=== PATIENT | male | born 1955 | race Asian ===

== ENCOUNTER → 2017-01-06 | Outpatient (CLI) | payer OTHER ==
--- NOTE | ~2017-01-06 | CT138 ---
[facility] A Service of [facility] RADIOLOGY TEXT RESULTS PATIENT: ZACKARY NICOLE [facility] : 59 UNIT #: [id number] AGE: [address]: PRISCILA London APRN SEX: M ORDER DR: [id number] [facility] [address]. [place], [place] [address] [id number] O MR#: [id number] Acc #: [id number] NAME: ZACKARY NICOLE : 1955 SEX: M STUDY DATE/TIME: 01/06/2017 12:23 UNIT: [facility] ROOM: STUDY DESCRIPTION: CT Lung screening initial Attending Physician: Priscila Multani Aprn Referring Physician: Priscila Multani Aprn Ordering Physician: Priscila Multani Aprn Primary Care Physician: Priscila Multani Aprn MEDICAL IMAGING REPORT This report is preliminary unless electronic signature is present EXAM CT lung cancer screening INDICATION Lung cancer screening. 30 pack year smoking history. PROCEDURE Unenhanced low-dose CT of the chest performed per lung cancer screening protocol. CTDI 2.95 mGy. Total DLP 124 mGy-cm. COMPARISON Chest CT from 06/12/[address] exam was performed with one or more of the following radiation dose reduction techniques: automatic control, adjustment of mA and/or kV according to patient size, and iterative reconstruction. FINDINGS Mild tree-in-bud nodularity, posterolateral right upper lobe is unchanged most in keeping with chronic infectious or inflammatory change. There is no suspicious pulmonary nodule. There are also a few tiny tree-in-bud nodularity nodules in the posterior left upper lobe. No adenopathy. Ascending thoracic aorta measures up to 4.3 cm. This is similar to the prior. No acute findings in the included upper abdomen. No aggressive appearing bone lesion. IMPRESSION 1. No suspicious pulmonary nodule. 2. Tiny tree-in-bud nodules in the right and left upper lobe. It is most in keeping with chronic infectious or inflammatory change and is unchanged from 2013. 3. 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 [facility] A Service of [facility] RADIOLOGY TEXT RESULTS PATIENT: ZACKARY NICOLE LOCATION: [facility] : 59 UNIT #: [id number] AGE: [address]: PRISCILA London, GENERAL LABOR SEX: M ORDER DR: 4. LungRADS category 2 benign findings. Per ACR LungRADS recommendations suggest patient continue with annual low-dose lung cancer screening. Dictated by... Harish Davison M.D. THIS IS AN ELECTRONICALLY VERIFIED REPORT Harish Davison M.D. at 01/07/2017 9:39 AM NICOLLE/hair TD: 01/06/2017 13:37 JOB #: [id number] MEDICAL IMAGING REPORT Page 1 of 1 COPY
== END | disposition home or self-care (01) ==
LOC: CCAT 11:45
DX: Z87.891 Personal history of nicotine dependence (principal); R91.8 Other nonspecific abnormal finding of lung field; I71.2 Thoracic aortic aneurysm, without rupture
CPT/HCPCS: G0297

== ENCOUNTER → 2017-04-27 | Outpatient (CLI) | payer OTHER ==
--- NOTE | ~2017-04-27 | CR58 ---
[facility] A Service of [facility] RADIOLOGY TEXT RESULTS PATIENT: ZACKARY NICOLE LOCATION: [facility] : 59 UNIT #: [id number] AGE: [address]: PRISCILA London APRN SEX: M ORDER DR: [id number] [facility] [address]. [place], [place] [address] [id number] O MR#: [id number] Acc #: [id number] NAME: ZACKARY NICOLE : 1955 SEX: M STUDY DATE/TIME: 04/27/2017 10:15 UNIT: [facility] ROOM: STUDY DESCRIPTION: CR Cervical Spine 2 or 3 Views Attending Physician: Priscila Multani Aprn Referring Physician: Priscila Multani Aprn Ordering Physician: Stephanie London Primary Care Physician: Priscila London MEDICAL IMAGING REPORT This report is preliminary unless electronic signature is present EXAM Cervical spine 2 or 3 views HISTORY Cervicalgia. Pain in neck and mid back left sided for 2 months. No known injury. FINDINGS AP lateral odontoid views cervical spine reviewed. There are 4 films submitted. There is no previous. Cervical vertebral bodies are seen from C1 to T1. Sagittal alignment is normal. Paravertebral soft tissues are normal. Mild loss of intervertebral disc height most apparent at C4-5, C5-6, to a lesser extent C3-4 with some endplate spondylosis at each of these levels. There is also facet arthritis most apparent at C7-T1. There is no acute fracture. There is no bone destruction. If more information is needed the patient is a candidate findings best pursued further with an MRI of the cervical spine. IMPRESSION 1. Plain film evidence of cervical degenerative disc disease and facet arthritis. No acute fracture or malalignment. If more information is needed patient is best assessed further with an MRI of the cervical spine. Dictated by... Bell Mcdermott M.D. THIS IS AN ELECTRONICALLY VERIFIED REPORT Bell Mcdermott M.D. at 04/28/2017 7:25 AM STS. [facility] A Service of [facility] RADIOLOGY TEXT RESULTS PATIENT: ZACKARY NICOLE LOCATION: [facility] #: [id number] : 59 UNIT #: [id number] AGE: [address]: PRISCILA London, [employer] VICE PRESIDENT SEX: M ORDER DR: Robbi TD: 04/28/2017 01:48 JOB #: [id number] MEDICAL IMAGING REPORT Page 1 of 1 COPY
--- NOTE | ~2017-04-27 | CR242 ---
[facility] A Service of [facility] RADIOLOGY TEXT RESULTS PATIENT: ZACKARY NICOLE LOCATION: [facility] : 59 UNIT #: [id number] AGE: [address]: PRISCILA London APRN SEX: M ORDER DR: [id number] [facility] [address] [place], [place] [address] [id number] O MR#: [id number] Acc #: [id number] NAME: ZACKARY NICOLE : 1955 SEX: M STUDY DATE/TIME: 04/27/2017 10:19 UNIT: [facility] ROOM: STUDY DESCRIPTION: CR Thoracic Spine 2 Views Attending Physician: Priscila Multani Aprn Referring Physician: Priscila Multani Aprn Ordering Physician: Priscila Multani Aprn Primary Care Physician: Priscila Multani Aprn MEDICAL IMAGING REPORT This report is preliminary unless electronic signature is present EXAM Thoracic spine plain films. HISTORY Mid back pain left-sided for 2 months, no known injury. COMMENT AP, lateral and swimmer's views of the thoracic spine reviewed. There is a comparison study from 04/10/2016. There is normal sagittal alignment. There is mild anterior endplate spondylosis multiple levels. This is also present previously, though there may be subtle progression from prior allowing for improved technique on the current films. There is no bone destruction or acute fracture suspected. IMPRESSION Plain film evidence of mild multiple-level thoracic degenerative disease, suspect subtle progression of disease since 04/10/2016. No acute fracture, bone destruction or malalignment appreciated. Dictated by... Bell Mcdermott M.D. THIS IS AN ELECTRONICALLY VERIFIED REPORT Bell Mcdermott M.D. at 04/28/2017 7:25 AM YARIEL/becky TD: 04/28/2017 01:52 JOB #: [id number] [facility] A Service of [facility] RADIOLOGY TEXT RESULTS PATIENT: ZACKARY NICOLE LOCATION: [facility] #: [id number] : 59 UNIT #: [id number] AGE: [address]: PRISCILA London, RAVEN SEX: M ORDER DR: MEDICAL IMAGING REPORT Page 1 of 1 COPY
== END | disposition home or self-care (01) ==
LOC: CRAD 09:25
DX: M54.2 Cervicalgia (principal); M50.31 Other cervical disc degeneration, high cervical region; M50.320 Other cervical disc degeneration, mid-cervical region, unspecified level; M50.321 Other cervical disc degeneration at C4-C5 level; M50.322 Other cervical disc degeneration at C5-C6 level; M50.323 Other cervical disc degeneration at C6-C7 level; M50.33 Other cervical disc degeneration, cervicothoracic region; M51.34 Other intervertebral disc degeneration, thoracic region
CPT/HCPCS: 72040; 72070